=== PATIENT | female | born 1980 | race African-American/Black ===

== ENCOUNTER 2019-07-30 11:35 | Inpatient (IN) | payer OTHER ==
[2019-07-30 11:52] VITALS: BMI 26.7
--- NOTE | 2019-07-30 12:50 | HP ---
CIWA Score - Admission Criteria [facility] Guidelines: Admission for Medically Managed Detox: Requires at least one of the followin. CIWA greater than 12 2. Seizures within the past 24 hours 3. Delirium tremens within the past 24 hours 4. Hallucinations within the past 24 hours 5. Acute intervention needed for co occurring medical disorder 6. Acute intervention needed for co occurring psychiatric disorder 7. Severe withdrawal that cannot be handled at a lower level of care (continued vomiting, continued diarrhea, abnormal vital signs) requiring intravenous medication and/or fluids 8. Admitting History and Physical - Primary Care Physician PCP: Jenny Back - Admission Chief Complaint: would like inpatient rehab for cocaine History of Present Illness: Ms. Man is a 38 yo woman with pmhx of depression and HIV (dx in 2005, on medications) who presents because she would like to enter rehab for cocaine misuses. The patient reports she spends about $500 dollars a week on cocaine which she inhales. She denies injecting or smoking any drugs. She reports the last time she used was on Friday of this week (2 days ago). The patient reports she mainly uses on the weekend and her provides her with the money to buy the drugs. The patient reports she drinks alcohol but usually only on the weekends, states she may have around 7 drinks between a friday and friday. She denies blacking out, she denies ever experiencing symptoms of alcohol withdrawal. The patient states she has been in outpatient rehab for cocaine misuse but has been unable to stop using cocaine. She states she has been in outpatient rehab for about 2mo. She has a court case coming up on August 16 to discuss custody of her daughters, she would like to enter inpatient rehab so she can get clean and reclaim custody of her children. Currently her sister has custody of her older 16yo daughter and her younger daughter's (9yo) godmother has custody of her. The patient was recently hospitalized at [facility] for MDD and suicidal ideation. She spent a month in the hospital and then upon discharge entered outpatient rehab for cocaine misuse. She attends [facility] but is still using cocaine. She has no significant period of being clean. Pt has forgotten her HIV medications at home, but will call her to bring them. Admission ROS [facility] - HPI Allergies/Adverse Reactions: Allergies Allergy/AdvReac Type Severity Reaction Status Date / Time Penicillins Allergy Intermediate Rash Verified 07/30/19 11:44 - Ebola screening Have you traveled outside of the country in the last 21 days: No (N) Have you had contact with anyone from an Ebola affected area: No - Review of Systems Constitutional: Night Sweats, Unintentional Wgt. Loss (reports she lost about 15lbs in 1 mo unintentionally 2 MO ago but her weight has been stable since) EENT: reports: Ear Pain, Throat Pain, Other (tooth pain, states her tooth is chipped) Respiratory: reports: Cough (reports she has had a cough since ). denies: Shortness of Breath Cardiac: denies: Chest Pain, Lightheadedness, Palpitations GI: reports: Constipated, Diarrhea. denies: Nausea, Vomiting : reports: Other (pt has some itching reports it feels like yeast infection). denies: Burning Musculoskeletal: reports: Joint Pain, Muscle Pain Integumentary: reports: Pruritus Neuro: reports: Headache. denies: Numbness, Tingling Endocrine: denies: Excessive Sweating, Flushing Hematology: denies: Blood Clots, Easy Bleeding Psychiatric: reports: Anxious, Depressed Other Systems: Reviewed and Negative Patient History - Smoking Cessation Smoking history: Current every day smoker Have you smoked in the past 12 months: Yes Aproximately how many cigarettes per day: 10 Initiated information on smoking cessation: Yes 'Breaking Loose' booklet given: 07/30/19 - Substances abused Cocaine Substance route: Inhalation Frequency: 3-6 times per week Amount used: $500 Age of first use: 29 Date of last use: 07/27/19 Admission Physical Exam [facility] - Vital Signs Vital Signs: Vital Signs - 24 hr 07/30/19 11:39 Temperature 98.6 F Pulse Rate 93 H Respiratory 18 Rate Blood Pressure 125/77 - Physical General Appearance: Yes: Within Normal Limits, No Apparent Distress, Nourished, Appropriately Dressed HEENTM: Yes: Within Normal Limits, EOMI, Hearing grossly Normal, PIO, Pharynx Normal Respiratory: Yes: Within Normal Limits, Chest Non-Tender, Lungs Clear, Normal Breath Sounds Neck: Yes: Within Normal Limits, No masses,lesions,Nodules, Supple, Trachea in good position Cardiology: Yes: Within Normal Limits, Regular Rhythm, Regular Rate, S1, S2 Abdominal: Yes: Within Normal Limits, Normal Bowel Sounds, Non Tender, Flat, Soft Back: Yes: Within Normal Limits, Normal Inspection. No: CVA Tenderness, Vertebral Tenderness Musculoskeletal: Yes: Within Normal Limits, full range of Motion, Gait Steady Extremities: Yes: Within Normal Limits, Normal Capillary Refill, Normal Inspection, Normal Range of Motion, Non-Tender Neurological: Yes: Within Normal Limits, laundromat worker II-XII NML intact, Fully Oriented, Motor Strength 5/5 Integumentary: Yes: Within Normal Limits, Normal Color, Dry, Warm - Diagnostic (1) Cocaine dependence Current Visit: Yes Status: Chronic (2) HIV (human immunodeficiency virus infection) Current Visit: Yes Status: Chronic (3) Major depressive disorder Current Visit: Yes Status: Acute (4) Nicotine dependence Current Visit: Yes Status: Chronic Cleared for Admission [facility] - Detox or Rehab Claeared for Rehab Admission: Yes Breathalyzer - Breathalyzer Breathalyzer: 0 Urine Drug Screen - Test Device Lot number: [id number] Expiration date: 03/10/21 - Control Is test valid?: Yes - Results Drug screen NEGATIVE: No Urine drug screen results: CARLOS-Cocaine Inpatient Rehab Admission - Rehab Decision to Admit Inpatient rehab admission?: Yes - Initial Determination Are CD services needed?: Yes Free of communicable disease: Yes Not in need of hospitalization: Yes - Rehab Admission Criteria Previous failed treatment: Yes Poor recovery environment: Yes Comorbidities: Yes Lacks judgement: No Patient is meeting Inpatient Rehab admission criteria:: Yes
[2019-07-30] MEDS ORDERED: MENTHOL/PHENOL 1 EACH UD MM PRN (13:29)
[2019-07-30] MEDS ORDERED: MAGNESIUM HYDROX 2400MG/30ML ORAL SUSPENSION 30 ML CUP PO PRN (13:29)
[2019-07-30] MEDS ORDERED: MAG HYDROX/AL HYDROX/SIMETH 30 ML UNIT-DOSE CUP PO PRN (13:29)
[2019-07-30] MEDS ORDERED: P-EPHED 60MG/TRIPROLIDI 2.5MG TABLET PO PRN (13:29)
[2019-07-30] MEDS ORDERED: IBUPROFEN 400 MG TABLET (FP) PO PRN (13:29)
[2019-07-30] MEDS ORDERED: MAGNESIUM CITRATE 300 ML BOTTLE PO PRN (13:29)
[2019-07-30] MEDS ORDERED: LOPERAMIDE HCL 2 MG CAPSULE PO PRN (13:29)
[2019-07-30] MEDS ORDERED: NICOTINE POLACRILEX 2 MG GUM BUC PRN (13:29)
[2019-07-30] MEDS ORDERED: ACETAMINOPHEN 325 MG TABLET (FP) PO PRN (13:29)
[2019-07-30] MEDS ORDERED: guaiFENesin 200 MG/10 ML 10 ML UNIT-DOSE CUPS PO PRN (13:29)
[2019-07-30] MEDS ORDERED: hydrOXYzine PAMOATE 25 MG CAPSULE (FP) PO PRN (13:29)
--- NOTE | 2019-07-30 13:49 | PN ---
Teaching Attending Note Name of Resident: Mai Grant ATTENDING PHYSICIAN STATEMENT I saw and evaluated the patient. I reviewed the resident's note and discussed the case with the resident. I agree with the resident's findings and plan as documented. SUBJECTIVE:this 38 years old female with cocaine dependence,seeking rehab,hiv since 2005,hs 2 daughter ,16 under custody of sister,9 years old under custody of godmother,legally issue ,cps case,trying to get custody of her children, living with her ,major depressive disorder, no suicidal,no homicidal OBJECTIVE: Vital Signs Temperature 98.6 F 07/30/19 11:39 Pulse Rate 93 H 07/30/19 11:39 Respiratory Rate 18 07/30/19 11:39 Blood Pressure 125/77 07/30/19 11:39 O2 Sat by Pulse Oximetry (%) ASSESSMENT AND PLAN: plan for inpatient rehab,psychiatric consultation,has medication at home will try to get to bring medication to rehab
[2019-07-30] MEDS ORDERED: ALBUTEROL SO4 8 GM HFA INHALER IH PRN (13:50)
[2019-07-30] MEDS ORDERED: PT OWN MED DRAWER 7, Y5N ONE (14:39)
[2019-07-30 17:53] LABS: HEMATOCRIT 37.8 % (32.4-45.2); HEMOGLOBIN 12.7 GM/dL (10.7-15.3); MCH 32.2 pg (25.7-33.7); MCHC 33.7 g/dl (32.0-36.0); MEAN CELL VOLUME 95.7 fl (80-96); PLATELET COUNT 295 K/MM3 (134-434); RBC 3.95 M/mm3 (3.60-5.2); RDW 13.8 % (11.6-15.6); WHITE BLOOD COUNT 8.4 K/mm3 (4.0-10.0)
[2019-07-30 18:04] LABS: ALBUMIN 3.2 g/dl (3.4-5.0); BILIRUBIN,TOTAL 0.2 mg/dL (0.2-1); BLOOD UREA NITROGEN 8.2 mg/dL (7-18); CALCIUM 8.8 mg/dL (8.5-10.1); CREATININE 0.7 mg/dL (0.55-1.3); POTASSIUM 3.7 mmol/L (3.5-5.1); TOT PROT 8.3 g/dl (6.4-8.2)
[2019-07-30] MEDS: THIAMINE HCL 100 MG TABLET (FP) PO SCH (21:40)
[2019-07-30] MEDS ORDERED: MELATONIN 5 MG TABLETS PO PRN (22:00)
[2019-07-31] MEDS: PRENATAL VITAMINS W/ FOLIC ACID TABLET (FP) PO SCH (09:53)
--- NOTE | 2019-07-31 10:50 | CONSULT ---
[facility] Psychiatric Consult - Data Date of interview: 07/31/19 Admission source: [facility] Identifying data: First visit to [facility] and direct admission to [address] from the community health for this 38 y/o AA female who sought rehabilitative care to address her MOE issues (cocaine, nicotine) co-morbid with MDD and Anxiety Disorder. Patient is , mother of two, domiciled, unemployed and supported via [employer] benefits. Substance Abuse History: Discussed with patient. See details in current [facility] report for details : Smoking history: Current every day smoker. Have you smoked in the past 12 months: Yes. Aproximately how many cigarettes per day: 10. Initiated information on smoking cessation: Yes. 'Breaking Loose' booklet given: 07/30/19. - Substances abused. Cocaine. Substance route: Inhalation. Frequency: 3-6 times per week. Amount used: $500. Age of first use: 29. Date of last use: 07/27/19. Urine drug screen results: CARLOS-Cocaine Medical History: Remarkable for HIV infection (on ART medications) and bronchial asthma. Psychiatric History: Patient endorses one psychiatric hospitalization at [facility] (retained for four weeks) in May 2019 for depresson + suicidal ideation. Discharged in mid-June 2019 and referred for aftercare to [facility]. Ms Man is reportedly prescribed prozac 60 mg/day (non-compliant for four days) + trazodone 50 mg/hs + gabapentin 400 mg/tid. Patient denies history of suicide attempts. Physical/Sexual Abuse/Trauma History: Patient denies. Additional Comment: Urine drug screen results: CARLOS-Cocaine. Noted. Mental Status Exam - Mental Status Exam Alert and Oriented to: Time, Place, Person Cognitive Function: Good Patient Appearance: Well Groomed (short stature) Mood: Withdrawn, Apprehensive, Hopeful Affect: Mood Congruent, Constricted Patient Behavior: Fatigued, Appropriate, Cooperative Speech Pattern: Clear Voice Loudness: Normal Thought Process: Intact, Goal Oriented Thought Disorder: Not Present Hallucinations: Denies Suicidal Ideation: Denies Homicidal Ideation: Denies Insight/Judgement: Fair Sleep: Poorly, Difficulty falling asleep Appetite: Good Gait/Station: Normal Psychiatric Findings - Problem List ([place] 1, 2,3) (1) Cocaine dependence Current Visit: Yes Status: Chronic (2) Nicotine dependence Current Visit: Yes Status: Chronic (3) Major depressive disorder Current Visit: Yes Status: Chronic (4) Insomnia Current Visit: Yes Status: Chronic - Initial Treatment Plan Initial Treatment Plan: Psychoeducation. Sleep hygiene. Support. Resumed : trazodone 50 mg po hs + prozac 60 mg po daily + gabapentin 100 mg po tid ( modified). Side effects/benefits of these medications are discussed with the patient. Ms Man is in agreement with this plan of care. Observation. Medications are verified with pharmacist at [facility] ([phone]) : trazodone + prozac doses are confirmed ; gabapentin is reported as 100 mg/am + 200 mg/hs (last refiill issued in 05/2019).
[2019-07-31] MEDS: GABAPENTIN 100 MG CAPSULE (FP) PO SCH ×2 (14:25→21:57)
--- NOTE | 2019-07-31 14:36 | EKG ---
Test Reason : Blood Pressure : / mmHG Vent. Rate : 078 BPM Atrial Rate : 078 BPM P-R Int : 150 ms QRS Dur : 078 ms QT Int : 406 ms P-R-T Axes : 043 011 048 degrees QTc Int : 462 ms NORMAL SINUS RHYTHM NORMAL ECG NO PREVIOUS ECGS AVAILABLE Confirmed by IESHA CERDA MD ([id number]) on 07/31/2019 2:36:12 PM Referred By: Confirmed By:IESHA CERDA MD
[2019-07-31 21:49] LABS: EPI CELLS 3.5 /HPF (0-5/HPF); HYALINE CASTS 1 /lpf (0-8); PH,URINE 7.5 (5.0-8.0); URINE APPEARANCE CLEAR; URINE BILIRUBIN NEGATIVE (NEGATIVE); URINE COLOR YELLOW; URINE GLUCOSE (UA) NEGATIVE (NEGATIVE); URINE KETONE NEGATIVE (NEGATIVE); URINE LEUK ESTERASE 1+ (NEGATIVE); URINE NITRITE NEGATIVE (NEGATIVE); URINE PROTEIN NEGATIVE (NEGATIVE); URINE RBC 2 /hpf (0-4); URINE UROBILINOGEN 0.2 mg/dL (0.2-1.0); URINE WBC 3 /hpf (0-5)
[2019-07-31] MEDS: traZODone HCL 50 MG TABLET (FP) PO SCH (21:57)
[2019-07-31] MEDS: THIAMINE HCL 100 MG TABLET (FP) PO SCH (21:57)
[2019-07-31] MEDS ORDERED: GABAPENTIN 400 MG CAPSULE (FP) PO SCH (22:00)
[2019-08-01] MEDS: GABAPENTIN 100 MG CAPSULE (FP) PO SCH ×3 (07:02→21:20)
[2019-08-01 07:24] VITALS: PULSE 99
[2019-08-01] MEDS: PRENATAL VITAMINS W/ FOLIC ACID TABLET (FP) PO SCH (09:51)
[2019-08-01] MEDS: FLUoxetine HCL 20 MG CAPSULE (FP) PO SCH (09:51)
[2019-08-01] MEDS: THIAMINE HCL 100 MG TABLET (FP) PO SCH (21:20)
[2019-08-01] MEDS: traZODone HCL 50 MG TABLET (FP) PO SCH (21:20)
[2019-08-02] MEDS: GABAPENTIN 100 MG CAPSULE (FP) PO SCH (06:38)
[2019-08-02 07:14] VITALS: BP 111/73; TEMP 98.4
--- NOTE | 2019-08-02 08:33 | DS ---
[facility] Rehab Discharge Summary - [facility] Rehab Discharge Summary Admission Date: 07/30/19 Discharge Date: 08/02/19 - History Present History: Cocaine dependence Pertinent Past History: Ms. Man is a 38 yo woman with pmhx of depression and HIV (dx in 2005, on medications) in rehab for cocaine misuses. The patient reports she spends about $500 dollars a week on cocaine which she inhales. She denies injecting or smoking any drugs. S The patient reports she mainly uses on the weekend and her provides her with the money to buy the drugs. The patient reports she drinks alcohol but usually only on the weekends, states she may have around 7 drinks between a friday and friday. She denies blacking out, she denies ever experiencing symptoms of alcohol withdrawal. The patient states she has been in outpatient rehab for cocaine misuse but has been unable to stop using cocaine. She states she has been in outpatient rehab for about 2mo. She has a court case coming up on August 16 to discuss custody of her daughters, she would like to enter inpatient rehab so she can get clean and reclaim custody of her children. Currently her sister has custody of her older 16yo daughter and her younger daughter's (9yo) godmother has custody of her. The patient was recently hospitalized at [facility] for MDD and suicidal ideation. She spent a month in the hospital and then upon discharge entered outpatient rehab for cocaine misuse. She attends [facility] but is still using cocaine. She has no significant period of being clean. Pt has forgotten her HIV medications at home, but will call her to bring them. - Discharge Physical Exam Vital Signs: Vital Signs Temperature 98.4 F 08/02/19 07:13 Pulse Rate 99 H 08/02/19 07:13 Respiratory Rate 18 08/02/19 07:13 Blood Pressure 111/73 08/02/19 07:13 O2 Sat by Pulse Oximetry (%) Pertinent Admission Physical Exam Findings: General Appearance: No Apparent Distress, HEENTM: PIO, Normocephalic Respiratory: Lungs Clear, Neck: Supple, Trachea in good position Cardiology:, S1, S2 Abdominal: +Bowel Sounds, Non Tender, Flat, Soft Back: No CVA Tenderness, Vertebral Tenderness Musculoskeletal: full range of Motion, Gait Steady Neurological: museum curator II-XII NML intact, - Treatment Discharge Condition: Outpatient referral accepted (medically stable for discharge.patient will go to [facility]) Hospital Course: General Appearance: Yes: Within Normal Limits, No Apparent Distress, Nourished, Appropriately Dressed HEENTM: Yes: Within Normal Limits, EOMI, Hearing grossly Normal, PIO, Pharynx Normal Respiratory: Yes: Within Normal Limits, Chest Non-Tender, Lungs Clear, Normal Breath Sounds Neck: Yes: Within Normal Limits, No masses,lesions,Nodules, Supple, Trachea in good position Cardiology: Yes: Within Normal Limits, Regular Rhythm, Regular Rate, S1, S2 Abdominal: Yes: Within Normal Limits, Normal Bowel Sounds, Non Tender, Flat, Soft Back: Yes: Within Normal Limits, Normal Inspection. No: CVA Tenderness, Vertebral Tenderness Musculoskeletal: Yes: Within Normal Limits, full range of Motion, Gait Steady Extremities: Yes: Within Normal Limits, Normal Capillary Refill, Normal Inspection, Normal Range of Motion, Non-Tender Neurological: Yes: Within Normal Limits, museum curator II-XII NML intact, Fully Oriented, Motor Strength 5/5 Integumentary: Yes: Within Normal Limits, Normal Color, Dry, Warm - Medication Discharge Medications: Ambulatory Orders Albuterol Sulfate Inhaler - [Ventolin Hfa Inhaler -] 1 - 2 inh PO QID PRN Bictegrav/Emtricit/Tenofov Ala [Biktarvy 50-200-25 mg Tablet] 1 each PO DAILY Fluoxetine HCl [Prozac -] 60 mg PO DAILY 07/30/19 Gabapentin 400 mg PO BID 07/30/19 traZODone HCL [Trazodone HCl] 50 mg PO HS 07/30/19 - Medication-Assisted Treatment (MAT) Medication-Assisted Treatment (MAT): No - Discharge Instructions Diet, activity, other medical instructions: Diet: as tolerated Activity: as tolerated Other medical instructions: Please follow up with aftercare referral. - Diagnosis (1) Cocaine dependence Current Visit: Yes Status: Chronic - Follow-up Referral Minutes to complete discharge: 20 - AMA Did Patient Leave Against Medical Advice: No
[2019-08-02] MEDS: PRENATAL VITAMINS W/ FOLIC ACID TABLET (FP) PO SCH (09:10)
[2019-08-02] MEDS: FLUoxetine HCL 20 MG CAPSULE (FP) PO SCH (09:10)
== END 2019-08-02 10:22 | disposition home or self-care (01) | DRG 772 ==
LOC: YASAS 11:35 → Y3E 13:56
PROVIDERS: ADMIT Neuromusculoskeletal Medicine & OMM; ATTEND Neuromusculoskeletal Medicine & OMM
PROC: HZ42ZZZ Group Counseling for Substance Abuse Treatment, Cognitive-Behavioral (ICD-10-PCS; principal; 2019-07-30)
DX: F14.20 Cocaine dependence, uncomplicated (principal); F17.210 Nicotine dependence, cigarettes, uncomplicated; F32.9 Major depressive disorder, single episode, unspecified; G47.00 Insomnia, unspecified; Z21 Asymptomatic human immunodeficiency virus [HIV] infection status; J45.909 Unspecified asthma, uncomplicated; Z88.0 Allergy status to penicillin
CPT/HCPCS: 36415; 80053; 81003; 81025; 85027; 86593; 93005; 93010